=== PATIENT | male | born 1970 | race Two or more races ===

== ENCOUNTER 2021-05-06 16:33 | Emergency (ER) | payer OTHER ==
[~2021-05-06] VITALS: Ht 165.1 cm; Wt 90.9 kg
[2021-05-06 16:34] VITALS: BP 163/71
== END 2021-05-06 20:30 | disposition left against medical advice (07) ==
LOC: EMS 16:36
DX: R04.0 Epistaxis (principal); Z53.21 Procedure and treatment not carried out due to patient leaving prior to being seen by health care provider